=== PATIENT | female | born 1990 | race Two or more races ===

== ENCOUNTER 2017-11-06 01:30 | Emergency (ER) | payer BC, MEDICAID ==
[~2017-11-06] VITALS: Ht 165.1 cm; Wt 54.9 kg
--- NOTE | 2017-11-06 01:55 | NUR ---
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 PT IS AA&O AND APPEARS ANXIOUS.
--- NOTE | 2017-11-06 02:52 | NUR ---
PT WAS MONITORED. VSS. DR. VALDEZ IS SPEAKING TO THE PT. PT STATED THAT SHE FEELS BETTER.
[2017-11-06 02:55] VITALS: BP 114/66
--- NOTE | 2017-11-06 02:55 | NUR ---
Patient discharged to home in stable condition. Written and verbal after care instructions given. Patient verbalizes understanding of instruction. PT AMBULATED OUT WITH A STEADY GAIT. VSS.
== END 2017-11-06 02:56 | disposition home or self-care (01) ==
LOC: ER 01:38
DX: F41.9 Anxiety disorder, unspecified (principal); R06.02 Shortness of breath
CPT/HCPCS: A4606; Z7610